=== PATIENT | female | born 1955 | race Two or more races ===

== ENCOUNTER 2024-01-03 13:16 | Emergency (ER) | payer MEDICARE, MEDICAID ==
[~2024-01-03] VITALS: Ht 154.9 cm; Wt 70.0 kg
[2024-01-03] MEDS ORDERED: EFIN1SOL EX (16:13)
[2024-01-03 16:51] VITALS: BP 121/72; PULSE 80; RESP 14; TEMP 98.2; O2SAT 95
== END 2024-01-03 16:53 | disposition home or self-care (01) ==
LOC: ER 13:16
DX: B35.1 Tinea unguium (principal); Z76.0 Encounter for issue of repeat prescription; Z91.148 Patient's other noncompliance with medication regimen for other reason

== ENCOUNTER 2024-01-06 12:53 | Emergency (ER) | payer MEDICARE, MEDICAID ==
[~2024-01-06] VITALS: Ht 154.9 cm; Wt 67.7 kg
[~2024-01-06 12:53] MED LIST: EFIN1SOL EX
[2024-01-06 14:09] VITALS: BP 126/75; PULSE 93; RESP 16; TEMP 98.3; O2SAT 96
[2024-01-06] MEDS ORDERED: LEVO88TA4 PO (14:14)
[2024-01-06] MEDS ORDERED: LOSA-533 PO (14:14)
[2024-01-06] MEDS ORDERED: METH4PAK PO (14:14)
== END 2024-01-06 14:29 | disposition home or self-care (01) ==
LOC: ER 13:05
DX: I10 Essential (primary) hypertension (principal); R09.81 Nasal congestion; R42 Dizziness and giddiness; Z76.0 Encounter for issue of repeat prescription; Z79.890 Hormone replacement therapy; Z79.899 Other long term (current) drug therapy

== ENCOUNTER 2024-02-19 10:13 | Emergency (ER) | payer MEDICARE, MEDICAID ==
[~2024-02-19] VITALS: Ht 160 cm; Wt 70.2 kg
[~2024-02-19 10:13] MED LIST changes: +LEVO88TA4 PO; +LOSA-533 PO; +METH4PAK PO
[2024-02-19 10:23] VITALS: BP 132/78; PULSE 91; RESP 20; O2SAT 100
--- NOTE | 2024-02-19 10:27 | ED.PDOC ---
Psychiatric HPI Comments 68Y F with PMHx HTN and bipolar disorder presents to ED for chief complaint mental health. Pt states she has felt like harming herself for 2days but does not have a plan. Pt has never tried to harm herself in the past. Pt is currently taking Stephen 300mg. No known allergies. Time Seen by MD: 10:17 Primary Care Provider: unknown Reviewed Notes: Medications, Allergies Information Source: Patient Mode of Arrival: Ambulatory Severity: Able to Care for Self, Able to Control Self Severity of Pain: None Severity of Mental Status: Moderate Severity of Symptoms: Moderate Timing: Days Duration: Since onset Presents with: Suicidal Ideation Ingestion: None Circumstance: None Current substance abuse: Other Stressors: None History of: Bipolar Quality: None Associated signs and symptoms: None Past Medical History PAST MEDICAL HISTORY: HTN, Thyroid Surgical History: Denies all surgeries ON CALL History: No Pertinent ON CALL History Family History Family History: Reviewed,noncontributory to illness Social History Smoker: Non-Smoker Alcohol: Denies ETOH Use Drugs: Denies Drug Use Lives In: Home Constitutional: denies: chills, diaphoresis, fatigue, fever, malaise, sweats, weakness, others EENTM: denies: blurred vision, double vision, ear bleeding, ear discharge, ear drainage, ear pain, ear ringing, eye pain, eye redness, hearing loss, mouth pain, mouth swelling, nasal discharge, nose bleeding, nose congestion, nose pain, photophobia, tearing, throat pain, throat swelling, voice changes, others Respiratory: denies: cough, hemoptysis, orthopnea, SOB at rest, shortness of breath, SOB with excertion, stridor, wheezing, others Cardiovascular: denies: chest pain, dizzy spells, diaphoresis, Dyspnea on exertion, edema, irregular heart beat, left arm pain, lightheadedness, palpitations, PND, syncope, others Gastrointestinal: denies: abdomen distended, abdominal pain, blood streaked bowels, constipated, diarrhea, dysphagia, difficulty swallowing, hematemesis, melena, nausea, poor appetite, poor fluid intake, rectal bleeding, rectal pain, vomiting, others Genitourinary: denies: abnormal vagina bleeding, burning, dyspareunia, dysuria, flank pain, frequency, hematuria, incontinence, pain, , vagina discharge, urgency, others Neurological: denies: dizziness, fainting, headache, left sided numbness, left sided weakness, numbness, paresthesia, pre-existing deficit, right sided numbness, right sided weakness, seizure, speech problems, tingling, tremors, weakness, others Musculoskeletal: denies: back pain, gout, joint pain, joint swelling, muscle pain, muscle stiffness, neck pain, others Integumetry: denies: bruises, change in color, change in hair/nails, dryness, laceration, lesions, lumps, rash, wounds, others Allergic/Immunocompromised: denies: Difficulty Healing, Frequent Infections, Hives, Itching, others Hematologic/Lymphatic: denies: anemia, blood clots, easy bleeding, easy bruising, swollen glands, others Endocrine: denies: excessive hunger, excessive sweating, excessive thirst, excessive urination, flushing, intolerance to cold, intolerance to heat, unexplained weight gain, unexplained weight loss, others Psychiatric: reports: bipolar disorder; denies: anxiety, depression, hopeless, panic disorder, schizophrenia, sleepless, suicidal, others All Other Systems: Reviewed and Negative Physical Exam General Appearance: Moderate Distress, Normal HEENT: Normal ENT Inspection, Pharynx Normal, TMs Normal Neck: Full Range of Motion, Non-Tender, Normal, Normal Inspection Respiratory: Chest Non-Tender, Lungs Clear, No Accessory Muscle Use, No Respiratory Distress, Normal Breath Sounds Cardiovascular: No Edema, No JVD, No Murmur, No Gallop, Normal Peripheral Pulses, Regular Rate/Rhythm Breast Exam: Deferred Gastrointestinal: No Organomegaly, Non Tender, No Pulsatile Mass, Normal Bowel Sounds, Soft Genitalia: Deferred Pelvic: Deferred Rectal: Deferred Extremities: No calf tenderness, Normal capillary refill, Normal inspection, Normal range of motion, Non-tender, No pedal edema Musculoskeletal : Apperance: Normal Neurologic: Alert, swimming pool servicer II-XII nml as Tested, No Motor Deficits, Normal Affect, Normal Mood, No Sensory Deficits Cerebellar Function: Normal Reflexes: Normal Skin: Dry, Normal Color, Warm Peripheral Pulses: 3+ Radial (R), 3+ Radial (L) Lymphatic: No Adenopathy Was a procedure done? Was a procedure done?: No Psych Differential Dx Psych. Differential Dx: Bipolar Disorder, Hopeless, Suicidal X-Ray, Labs, Meds, VS Vital Signs Date Time Temp Pulse Resp B/P (MAP) Pulse Ox O2 Delivery O2 Flow Rate FiO2 02/19/24 10:23 97.8 91 20 132/78 (96) 100 Lab Test 02/19/24 10:30 Range/Units Urine Opiates Screen Pending Urine Fentanyl Screen Pending Urine Barbiturates Screen Pending Urine Phencyclidine Screen Pending Urine Amphetamines Screen Pending Urine Benzodiazepines Screen Pending Urine Cocaine Screen Pending Urine Cannabinoids Screen Pending Patient alert. Vitals stable. States that she wants to harm herself. Answering questions. Currently taking lithium. Medically cleared. Psychiatric evaluation. Reviewed her previous visit. Explained to the patient. Time of 1ST Reevaluation: 10:47 Reevaluation 1ST: Unchanged Patient Education/Counseling: Diagnosis, Treatment Family Education/Counseling: No Family Present Departure 1 Departure Time of Disposition: 10:44 Impression: Primary Impression: Suicidal ideation Disposition: 30 STILL A PATIENT Condition: Good Critical Care Note Critical Care Time?: No Stability Stability form required: No Heart Score Heart Score: Heart Score Response (Comments) Value History N/A 0 EKG N/A 0 Age N/A 0 Risk Factors N/A 0 Troponin N/A 0 Total 0 I personally scribed for GRACIELA NOLAN MD ([email or web address]) on 02/19/24 at 10:27. Electronically submitted by Luna Pepe ([employer]). I personally scribed for GRACIELA NOLAN MD ([email or web address]) on 02/19/24 at 10:34. Electronically submitted by Luna Pepe ([email or web address]). GRACIELA NOLAN MD Feb 19, 2024 10:27
[2024-02-19 10:59] LABS: Amphetamine Screen, Urine Neg (NEGATIVE); Barbiturate Scree,Urine Neg (NEGATIVE); Benzodiazephine Screen, Urine Neg (NEGATIVE); Cocaine Screen, Urine Neg (NEGATIVE); Opiate Scree,Urine Neg (NEGATIVE)
[2024-02-19 11:00] LABS: Cannabinoid Screen, Urine Neg (NEGATIVE); Phencyclidine Screen, Urine Neg (NEGATIVE)
[2024-02-19 12:09] VITALS: TEMP 98.7
[2024-02-19] MEDS: IBUPROFEN 600 MG TAB PO ONE (12:09)
--- NOTE | 2024-02-19 15:26 | DVHINCON2 ---
Date of service: Feb 19, [address] Pranav Vargas Reason for Consultation Medication management and disposition. History of Present Illness Chief complaint: "I feel like life is hopeless". History of present illness: This is a 68 year female who was seen for eval uation via telepsychiatry. Patient reported that she has been feeling depressed for a long time. Patient reported having trouble sleeping, energy level is low, has trouble concentrating and she reported feeling hopeless and worthless. She denied any suicidal or homicidal ideation. She denied any auditory or visual hallucination. She denied feeling paranoid. She reported that she has been able to cook food for herself and take care of her basic needs. Past psychiatric history: Patient reported five previous inpatient psychiatric hospitalization. Patient reported that she has been diagnosed schizophrenia and bipolar disorder. Patient reported one remote suicide attempts in the past. Past Medical History As per history and physical. Past Surgical History As per history and physical. Family History She denied any family history of any psychiatric illness. Social History Patient is single and has no children. Patient is on SSI. Substance use: Patient reported that she had used marijuana and alcohol past. Allergies: Coded Allergies: NO KNOWN ALLERGIES (Unverified , 01/03/24) Home Meds Active Scripts Losartan Potassium (Losartan Potassium) 25 Mg Tab, 1 TAB PO DAILY, #30 TAB Prov:SHELBY BANKS 01/06/24 Methylprednisolone (Medrol Dosepak) 4 Mg Donavon, 4 MG PO UD, #21 TAB UAD Prov:SHELBY BANKS 01/06/24 Levothyroxine Sodium (Levothyroxine Sodium) 88 Mcg Tab, 1 TAB PO DAILY, #30 TAB Prov:SHELBY BANKS 01/06/24 Efinaconazole (Jublia) 10 % Nikia, 10 % EX DAILY for 60 Days, #10 ML Prov:DARIEL DEMPSEY HOG OPERATOR 01/03/24 Review of Systems Review of systems is negative except HPI. Vital Signs Vital Signs Date Time Temp Pulse Resp B/P (MAP) Pulse Ox O2 Delivery O2 Flow Rate FiO2 02/19/24 12:09 98.7 02/19/24 10:23 91 20 132/78 (96) 100 Physical Exam Mental status examination: This is a 68 year old female who appears to be of her stated age. Her grooming is fair. Her eye contact is good. Her speech is regular rate and rhythm. She described her mood as "same, depressed" and her affect is restricted. She denied any suicidal or homicidal ideation. She denied any auditory or visual hallucination. Her thought processes slightly disorganized circumstantial. He is oriented to place and person. Her attention and concentration impaired. Her memory and language intact. Her judgment insight is limited. Her impulse control is limited. Her fund of knowledge is intact. Labs/Diagnostic Data Labs Test 02/19/24 10:30 Range/Units Urine Opiates Screen Neg NEGATIVE Urine Fentanyl Screen Neg NEGATIVE Urine Barbiturates Screen Neg NEGATIVE Urine Phencyclidine Screen Neg NEGATIVE Urine Amphetamines Screen Neg NEGATIVE Urine Benzodiazepines Screen Neg NEGATIVE Urine Cocaine Screen Neg NEGATIVE Urine Cannabinoids Screen Neg NEGATIVE Assessment Patient with a diagnosis of bipolar disorder not otherwise specified who is denying any suicidal or homicidal ideation. Patient is denying any auditory or visual hallucination. Patient reported that she has been able to take care for basic needs. When asked her how we can help her she reported that she need the resources in the community that she can talk to. Plan/Recommendation Patient does not meet the criteria for 5150 hold and is cleared for discharge from a psychiatric standpoint. Patient will benefit from a social science instructor consult to have access to resources in the community. Patient can follow up with outpatient psychiatric level of care. Care was coordinated with the patient and her RN. Plan discussed with: Patient CORNELIUS ANDERSON MD Feb 19, 2024 15:26
--- NOTE | 2024-02-19 18:18 | ED.PDOC ---
Departure 1 Departure Time of Disposition: 18:13 (Patient was cleared for discharge by psychiatry. Patient has no acute complaints at this time. We will discharge patient home with outpatient follow up) Impression: Primary Impression: Suicidal ideation Disposition: HOME / SELF CARE / HOMELESS Condition: Stable Written Prescriptions It is important to follow up with the regular doctor. Discharged With: Self CHAN WOODS MD Feb 19, 2024 18:18
== END 2024-02-19 18:53 | disposition home or self-care (01) ==
LOC: ER 10:13
DX: R45.851 Suicidal ideations (principal); I10 Essential (primary) hypertension; E03.9 Hypothyroidism, unspecified
CPT/HCPCS: 80307